=== PATIENT | female | born 1985 | race Caucasian/White ===

== ENCOUNTER 2022-06-26 00:23 | Emergency (ER) | payer MEDICAID ==
[~2022-06-26] VITALS: Ht 167.6 cm; Wt 54.5 kg
[2022-06-26 00:51] VITALS: BP 120/60
[2022-06-26] MEDS ORDERED: normal saline 1000ML IV soln IVB ONE (02:45)
--- NOTE | 2022-06-26 02:59 | NUR ---
Pt refusing labs and treatment. Stating she wants to go to [facility]. Physician made aware.
--- NOTE | 2022-06-26 03:02 | NUR ---
states she wants to call her mom, who "has my son" phone given to her.
--- NOTE | 2022-06-26 03:15 | NUR ---
's office here to interview patient.
--- NOTE | 2022-06-26 03:43 | NUR ---
pt has called 9-11, after the mixing and molding machine operator left. Pt is on the phone now with her mom I believe and stating that we aren't doing anything for her, argumentative. Dr Fuller went into the room to talk to her and the patient told her to "get out" refusing everything. Security notified to escort patient out of the ED.
== END 2022-06-26 03:53 | disposition left against medical advice (07) ==
LOC: ER 00:24
DX: Z00.00 Encounter for general adult medical examination without abnormal findings (principal); F17.200 Nicotine dependence, unspecified, uncomplicated
CPT/HCPCS: 99283

== ENCOUNTER 2022-11-27 07:24 | Emergency (ER) | payer MEDICAID ==
[~2022-11-27] VITALS: Ht 157.5 cm; Wt 50.0 kg
--- NOTE | 2022-11-27 08:11 | NUR ---
PT BELONGINGS PLACED IN LOCKER 23. 1 BRACELET/2 NECKLACES/1 EARRING/SWEATER/SKIRT/FLIPFLOPS.
[2022-11-27 08:30] VITALS: TEMP 97.9
--- NOTE | 2022-11-27 08:40 | NUR ---
PER DR FRIEND RN JUNE ORD 4MG ZOFRAN IV AND 1 LITER NS BOLUS AND ADMIN.
--- NOTE | 2022-11-27 09:02 | NUR ---
RN ATTEMPTING TO GET IV AT THIS TIME.
[2022-11-27] MEDS ORDERED: normal saline 1000ml 1,000 ML IV ONE (09:05)
[2022-11-27] MEDS ORDERED: ondansetron/PF 4mg/2ml inj IV ONE (09:05)
[2022-11-27 09:24] LABS: BASOPHILS % (AUTO) 0.2 % (0-1); EOSINOPHILS % (AUTO) 0.1 % (0-6); HEMATOCRIT 38.9 % (35.0-45.0); LYMPHOCYTES # (AUTO) 1.8 X10'3 (1.1-4.8); LYMPHOCYTES % (AUTO) 10.2 % (21-51); MEAN CORPUSCULAR HEMOGLOBIN 28.8 PG (27.0-31.0); MEAN CORPUSCULAR HGB CONC 33.4 g/dL (33.0-36.5); MEAN CORPUSCULAR VOLUME 86.3 FL (78-98); MEAN PLATELET VOLUME 10.3 FL (7.4-10.4); MONOCYTES # (AUTO) 1.1 X10'3 (0-0.9); NEUTROPHILS # (AUTO) 14.9 X10'3 (1.8-7.7); NEUTROPHILS % (AUTO) 83.5 % (42-75); PLATELET COUNT 178 X10'3 (140-440); RED BLOOD COUNT 4.51 X10'6 (4.20-5.60); RED CELL DISTRIBUTION WIDTH 13.8 % (11.5-14.5); WHITE BLOOD COUNT 17.8 X10'3 (4.5-11.0)
[2022-11-27 09:37] LABS: ALANINE AMINOTRANSFERASE 27 U/L (12-78); ALBUMIN 3.9 G/DL (3.4-5.0); ALBUMIN/GLOBULIN RATIO 1.2 (1.1-1.5); ALKALINE PHOSPHATASE 95 IU/L (46-116); ANION GAP 9 (8-16); ASPARTATE AMINO TRANSFERASE 41 U/L (10-37); BILIRUBIN,TOTAL 1.2 MG/DL (0.1-1.0); BLOOD UREA NITROGEN 26 MG/DL (7-18); BUN/CREATININE RATIO 28.3 (10.0-20.0); CHLORIDE 103 MMOL/L (99-107); CREATININE 0.92 MG/DL (0.40-0.90); ETHANOL < 10 MG/DL (<10); GLUCOSE 101 MG/DL (70-104); POTASSIUM 3.3 MMOL/L (3.5-5.1); SODIUM 136 MMOL/L (135-145); TOTAL CARBON DIOXIDE 23.8 MMOL/L (24-32); TOTAL PROTEIN 7.2 G/DL (6.4-8.2); eCRCL 68 ML/MIN; eGFR 70 ML/MIN
[2022-11-27] MEDS ORDERED: TETanus/Pertussis (Acell)/Diphther VAC/PF (Tdap-Adult) 0.5ml syringe IMVAC ONE (09:40)
[2022-11-27] MEDS ORDERED: LIDOcaine 1% W/epiNEPHrine 1:100,000 20ml vial IJ ONE (09:40)
--- NOTE | 2022-11-27 10:11 | NUR ---
PT HAVING LAC REPAIR AT THIS TIME. PT IS BEING VERBALLY ABUSIVE TO STAFF/REFUSING SOME CARE/AAOX1/ RN WILL CONT TO MONITOR. RN EDUCATED PT ON CARE AND PT VERBALIZED UNDERSTANDING AND CONT TO BE VERBALLY ABUSIVE AND REFUSE SOME CARE.
--- NOTE | 2022-11-27 10:22 | NUR ---
SECURITY AT BEDSIDE. TAYLA HODGES AND EMT STUDENT REPAIRING LAC AT THIS TIME.
--- NOTE | 2022-11-27 10:36 | NUR ---
DR JACOB ORD 20 MG IM SENDY. RN WILL ADMIN. SECURITY AT [facility].
[2022-11-27] MEDS ORDERED: ziprasidone IM 20mg inj **IM only IM ONE ×2 (10:40→18:20)
--- NOTE | 2022-11-27 10:50 | NUR ---
PT PHYSICALLY AGRESSIVE AND VERBALLY ABUSIVE TO STAFF. SECURITY AT BEDSIDE. HARD RESTRAINTS WERE APPLIED TO PT BILATERAL WRISTS AND LOCKED. RN NOTIFIED DR FRIEND AND RECD ORD. RN WILL CONT TO MONITOR.
--- NOTE | 2022-11-27 13:29 | NUR ---
HARD RESTRAINTS REMOVED. PT WAS EDUCATED ON REMOVAL OF RESTRAINTS/AGREED TO BE COOPERATIVE WITH STAFF/AND VERBALIZED UNDERSTANDING. RN WILL CONT TO MONITOR.
--- NOTE | 2022-11-27 13:46 | NUR ---
RN REASSESSED PT ORIENTATION. PT AAOX4 AT THIS TIME.
--- NOTE | 2022-11-27 14:02 | NUR ---
ERROR MADE IN DOC OF RESTRAINTS AT 1358. RESTRAINTS HAVE BEEN REMOVED. PT HAS APPOPRIATE BEHAVIOR AT THIS TIME.
[2022-11-27] MEDS ORDERED: POTASSIUM BICARB 20meq eff tab 20 MEQ TABLET.EFF PO SCH (16:45)
--- NOTE | 2022-11-27 16:46 | NUR ---
PER DR FRIEND RN MAY ORD AND ADMIN 40 MEQ OF EFFER-K AND ORD REQ DIET.
--- NOTE | 2022-11-27 16:46 | NUR ---
MEAL REQ FAXED TO DIETARY.
[2022-11-27 17:20] LABS: BILIRUBIN,URINE NEGATIVE (Neg); CLARITY,URINE SLIGHTLY CLOUDY (Clear); COLOR,URINE YELLOW (Yellow); GLUCOSE, URINE NEGATIVE (Neg); KETONES,URINE 40 mg/dl (Neg); LEUKOCYTE ESTERASE ,URINE NEGATIVE (Neg); NITRITES, URINE NEGATIVE (Neg); OCCULT BLOOD,URINE NEGATIVE (Neg); PH,URINE 5.5 (4.8-8.0); PROTEIN,URINE TRACE mg/dl (Neg); UROBILINOGEN,URINE 0.2 E.U/dL (0.2-1.0)
[2022-11-27 17:33] VITALS: BP 102/61; PULSE 98; O2SAT 100
[2022-11-27 17:34] LABS: URINE AMPHETAMINE SCREEN POSITIVE (Neg); URINE BARBITUATE SCREEN NEGATIVE (Neg); URINE BENZODIAZEPINES SCREEN NEGATIVE (Neg); URINE CANNABINOID SCREEN NEGATIVE (Neg); URINE COCAINE SCREEN NEGATIVE (Neg); URINE METHADONE SCREEN NEGATIVE (Neg); URINE OPIATE SCREEN NEGATIVE (Neg); URINE PHENCYCLIDINE SCREEN NEGATIVE (Neg)
[2022-11-27 17:41] LABS: MUCUS STRANDS FEW /LPF (Neg); SQUAMOUS EPITHELIAL CELL,UR FEW /LPF (FEW); UA COLLECTION TYPE CLN CATCH MIDSTREAM
[2022-11-27 17:42] LABS: BACTERIA,URINE FEW /HPF (Neg); HYALINE CASTS 0-3 /LPF (NEGATIVE); RBC,URINE 0-2 /HPF (0-2); WBC,URINE 0-4 /HPF (0-4)
--- NOTE | 2022-11-27 18:19 | NUR ---
PER DR FRIEND ORD NICOTINE PATCH AND ADMIN.
[2022-11-27] MEDS ORDERED: nicotine 14mg patch - 24hr TD ONE (18:20)
--- NOTE | 2022-11-27 18:37 | NUR ---
pt out of room and insisting on leaving facility to carry out her 5150 at [facility]. pt informed that will not be allowed and she must stay here. security called to bedside and pt agreed to go back into bed. pt given 20mg im geodon as ordered by .
--- NOTE | 2022-11-27 18:48 | NUR ---
pt now appears to be asleep on the gurney. rr are equal and unlabored. no distress observed.
--- NOTE | 2022-11-27 22:06 | NUR ---
pt continues to sleep in er room 8 on the gurney. pt does not appear to be in any distress.
--- NOTE | 2022-11-28 06:43 | NUR ---
Patient brought over from the Main ED to ED OF bed 23 by w/c. No distress observed.
[2022-11-28 07:57] VITALS: RESP 16
[2022-11-28] MEDS ORDERED: OLANZapine 5mg rapidly disint. tablet PO SCH (08:00)
--- NOTE | 2022-11-28 08:22 | NUR ---
Patient eating breakfast. No distress observed. Continue to monitor.
--- NOTE | 2022-11-28 08:35 | NUR ---
[facility] FAXED.
--- NOTE | 2022-11-28 09:05 | NUR ---
XRay came and xrayed patient's left foot. Patient states her heel is painful. No trauma and no edema observed. Continue to monitor.
--- NOTE | 2022-11-28 09:21 | NUR ---
Reddy HAWTHORNE, evaluating patient. No distress observed. Continue to monitor.
--- NOTE | 2022-11-28 09:55 | NUR ---
Patient screaming on the phone with her mother. "I'm not going to a psych hospital. I'm going to rehab!" Patient yelling "I twice the other night but I had the will to live
--- NOTE | 2022-11-28 09:56 | NUR ---
Patient asked by RN to get off the phone because the converstation was not helping. Continue to monitor.
--- NOTE | 2022-11-28 10:30 | NUR ---
Patient left 1 minute before taxi called to say they were on the way. They were early and patient could not would not wait.
== END 2022-11-28 10:20 | disposition home or self-care (01) ==
LOC: ER 07:25
DX: F15.10 Other stimulant abuse, uncomplicated (principal); Z20.822 Contact with and (suspected) exposure to COVID-19
CPT/HCPCS: 36415; 71045; 73620; 80053; 80305; 80320; 81001; 82948; 85025; 87811; 90471; 90715; 93005; 96361; 96372; 96374; 99285; J2405; J3486; J7030; A6258; A6449